=== PATIENT | female | born 1945 | race African-American/Black ===

== ENCOUNTER 2016-10-13 13:02 | Emergency (ER) | payer MEDICARE, MEDICAID ==
--- NOTE | 2016-10-13 14:00 | ER Document Report ---
ED Medical Screen (RME) - General Chief Complaint: Leg Swelling Stated Complaint: SWELLING IN LEGS Time Seen by Provider: 10/13/16 13:48 Mode of Arrival: Ambulatory Information source: Patient Notes: This is a 71-year-old female with multiple medical problems who presents with right lower extremity pain swelling and erythema. She states this has been progressing for 1-2 weeks. She states that over the past 2 days she has had increasing redness and pain. No fevers, chills, systemic symptoms. No chest pain or shortness of breath. She is concerned about a possible blood clot. She is on Xarelto. I have greeted and performed a rapid initial assessment of this patient. A comprehensive ED assessment and evaluation of the patient, analysis of test results and completion of the medical decision making process will be conducted by additional ED providers. TRAVEL OUTSIDE OF THE [place] IN LAST 30 DAYS: No - Related Data Allergies/Adverse Reactions: Shellfish * [Shellfish] Allergy (Verified 10/13/16 13:08) shrimp Allergy (Uncoded 10/13/16 13:08) Past Medical History - Past Medical History Cardiac Medical History: Reports: Hx Atrial Fibrillation, Hx DVT, Hx Hypercholesterolemia, Hx Hypertension Pulmonary Medical History: Denies: Hx Tuberculosis Endocrine Medical History: Reports: Hx Diabetes Mellitus Type 2 Renal/ Medical History: Denies: Hx Peritoneal Dialysis Musculoskeltal Medical History: Reports Hx Arthritis Psychiatric Medical History: Denies: Hx Depression Past Surgical History: Reports: Hx Cardiac Surgery - SHUNT, Hx Cholecystectomy, Hx Hysterectomy, Hx Vascular Surgery - IVC Filter - Immunizations Hx Diphtheria, Pertussis, Tetanus Vaccination: Yes Physical Exam - Vital signs Vitals: Temp Pulse Resp BP Pulse Ox 98.4 F 83 24 H 132/71 H 100 10/13/16 13:08 10/13/16 13:08 10/13/16 13:08 10/13/16 13:08 10/13/16 13:08 Course - Vital Signs Vital signs: Temp Pulse Resp BP Pulse Ox 98.4 F 83 24 H 132/71 H 100 10/13/16 13:08 10/13/16 13:08 10/13/16 13:08 10/13/16 13:08 10/13/16 13:08
--- NOTE | 2016-10-13 14:51 | ER Document Report ---
ED Extremity Problem, Lower - General Chief Complaint: Leg Swelling Stated Complaint: SWELLING IN LEGS Time Seen by Provider: 10/13/16 13:48 Mode of Arrival: Ambulatory Information source: Patient Notes: Patient is a 71-year-old female who presents to the ER today for 3 months of right lower extremity discoloration, pain, swelling, worsening over the past 3 weeks with some redness and increased pain. Patient has a history of DVT with an IVC filter placed. She denies any injury to the leg. She is on Xarelto currently. She denies any chest pain or shortness of breath. TRAVEL OUTSIDE OF THE [place] IN LAST 30 DAYS: No - Related Data Allergies/Adverse Reactions: Shellfish * [Shellfish] Allergy (Verified 10/13/16 13:08) shrimp Allergy (Uncoded 10/13/16 13:08) Past Medical History - General Information source: Patient - Social History Smoking Status: Former Smoker Family History: Reviewed & Not Pertinent Patient has suicidal ideation: No Patient has homicidal ideation: No - Past Medical History Cardiac Medical History: Reports: Hx Atrial Fibrillation, Hx DVT, Hx Hypercholesterolemia, Hx Hypertension Pulmonary Medical History: Denies: Hx Tuberculosis Endocrine Medical History: Reports: Hx Diabetes Mellitus Type 2 Renal/ Medical History: Denies: Hx Peritoneal Dialysis Musculoskeltal Medical History: Reports Hx Arthritis Psychiatric Medical History: Denies: Hx Depression Past Surgical History: Reports: Hx Cardiac Surgery - SHUNT, Hx Cholecystectomy, Hx Hysterectomy, Hx Vascular Surgery - IVC Filter - Immunizations Hx Diphtheria, Pertussis, Tetanus Vaccination: Yes Hx Pneumococcal Vaccination: 03/06/13 Review of Systems - Review of Systems Constitutional: No symptoms reported EENT: No symptoms reported Cardiovascular: No symptoms reported Respiratory: No symptoms reported Gastrointestinal: No symptoms reported Genitourinary: No symptoms reported Female Genitourinary: No symptoms reported Musculoskeletal: See HPI Skin: See HPI Hematologic/Lymphatic: See HPI Neurological/Psychological: No symptoms reported Physical Exam - Vital signs Vitals: Temp Pulse Resp BP Pulse Ox 98.4 F 83 24 H 132/71 H 100 10/13/16 13:08 10/13/16 13:08 10/13/16 13:08 10/13/16 13:08 10/13/16 13:08 - Notes Notes: PHYSICAL EXAMINATION: GENERAL: Obviously uncomfortable, but in no acute distress. HEAD: Atraumatic, normocephalic. EYES: Pupils equal round and reactive to light, extraocular movements intact, sclera anicteric, conjunctiva are normal. NECK: Normal range of motion, supple without lymphadenopathy LUNGS: CTAB and equal. No wheezes rales or rhonchi. HEART: Regular rate and rhythm without murmurs EXTREMITIES: Normal range of motion, no pitting edema. No cyanosis. NEUROLOGICAL: Cranial nerves grossly intact. Normal sensory/motor exams. PSYCH: Normal mood, normal affect. SKIN: Warm, Dry, normal turgor, darkened discoloration to the right lower extremity, slight erythema noted to the anterior right lower extremity, extremely tender to palpation in the right anterior lower extremity as well as calf, difficult to determine if Homans sign is positive or negative as patient screams in pain with the slightest graze of touch Course - Re-evaluation Re-evalutation: 10/13/16 16:57 Is unremarkable today, patient was given pain medication. Patient did admit during the visit that she just had a venous Doppler of the same extremity on 29 September. She has not received that report yet and that is why she came to the emergency department today. I do not have access to this report. 10/13/16 18:20 Venous Doppler negative for any DVT, good arterial pulses, dorsalis pedis, anterior and posterior tibialis all bounding. Will treat patient for cellulitis at this time with erythema, warmth, swelling and pain. - Vital Signs Vital signs: Temp Pulse Resp BP Pulse Ox 98.4 F 83 24 H 132/71 H 100 10/13/16 13:08 10/13/16 13:08 10/13/16 13:08 10/13/16 13:08 10/13/16 13:08 - Laboratory Result Diagrams: 10/13/16 16:10 10/13/16 16:10 Laboratory results interpreted by me: 10/13/16 10/13/16 16:10 16:10 Hgb 10.6 L Hct 33.8 L MCV 72 L MCH 22.7 L MCHC 31.3 L RDW 16.2 H Est GFR (Non-Af Amer) 50 L Total Protein 8.5 H Discharge - Discharge Clinical Impression: Cellulitis Qualifiers: Site of cellulitis: unspecified site Qualified Code(s): L03.90 - Cellulitis, unspecified Condition: Stable Disposition: HOME, SELF-CARE Instructions: Cellulitis ([facility]) Additional Instructions: Return immediately for any new or worsening symptoms. Follow up with primary care provider, call tomorrow to make followup appointment. Prescriptions: Cephalexin Monohydrate [Keflex 500 mg Capsule] 500 mg PO Q6H 10 Days Hydrocodone/Acetaminophen [[place] 5-325 mg Tablet] 1 tab PO Q4 PRN #15 tablet PRN Reason: Referrals: NELSON KATE MD [Primary Care Provider] - Follow up as needed
[2016-10-13] MEDS ORDERED: HYDROMORPHONE HCL INJ/PF 2 MG/ML AMPULE IM ONE (15:50)
[2016-10-13 16:34] LABS: ABSOLUTE EOSINOPHILS # (AUTO) 0.1 10^3/uL (0.0-0.6); ABSOLUTE LYMPHOCYTES (AUTO) 1.7 10^3/uL (0.5-4.7); ABSOLUTE MONOCYTES (AUTO) 0.5 10^3/uL (0.1-1.4); ABSOLUTE NEUT (AUTO) 2.6 10^3/uL (1.7-8.2); EOSINOPHILS % (AUTO) 1.3 % (0-6); HEMATOCRIT 33.8 % (36.0-47.0); HEMOGLOBIN 10.6 g/dL (12.0-15.5); LYMPHOCYTES % (AUTO) 34.3 % (13-45); MEAN CORPUSCULAR HEMOGLOBIN 22.7 pg (27.0-33.4); MEAN CORPUSCULAR HGB CONC 31.3 g/dL (32.0-36.0); MEAN CORPUSCULAR VOLUME 72 fl (80-97); RED BLOOD COUNT 4.67 10^6/uL (3.72-5.28); RED CELL DISTRIBUTION WIDTH 16.2 % (11.5-14.0); SEGMENTED NEUTROPHILS % (AUTO) 53.4 % (42-78); WHITE BLOOD COUNT 4.9 10^3/uL (4.0-10.5)
[2016-10-13 16:48] LABS: ALANINE AMINOTRANSFERASE 23 U/L (9-52); ALBUMIN 3.6 g/dL (3.5-5.0); ALKALINE PHOSPHATASE 96 U/L (38-126); ANION GAP 11 (5-19); ASPARTATE AMINO TRANSFERASE 25 U/L (14-36); BILIRUBIN,DIRECT 0.4 mg/dL (0.0-0.4); BILIRUBIN,TOTAL 0.8 mg/dL (0.2-1.3); BLOOD UREA NITROGEN 16 mg/dL (7-20); CALCIUM 8.8 mg/dL (8.4-10.2); CARBON DIOXIDE 27 mmol/L (22-30); CHLORIDE 103 mmol/L (98-107); CREATININE RESULT 1.08 mg/dL (0.52-1.25); GLUCOSE 95 mg/dL (75-110); POTASSIUM 3.9 mmol/L (3.6-5.0); SODIUM 141.2 mmol/L (137-145); TOTAL PROTEIN 8.5 g/dL (6.3-8.2)
--- NOTE | 2016-10-13 18:16 | RADIOLOGY REPORT (SQ) ---
EXAM DESCRIPTION: VENOUS UNILATERAL LOWER COMPLETED DATE/TIME: 10/13/2016 5:54 pm REASON FOR STUDY: RLE edema/pain COMPARISON: None. TECHNIQUE: Dynamic and static alvarado scale and color images acquired of the right leg venous system. S elected spectral images acquired with additional compression and augmentation maneuvers. The contrala teral common femoral vein and saphenofemoral junction were also imaged. Images stored on PACS. LIMITATIONS: None. FINDINGS: COMMON FEMORAL: Normal phasicity, compression and augmentation. No visualized echogenic ma terial on alvarado scale. No defects on color images. FEMORAL: Normal compression and augmentation. No visualized echogenic material on alvarado scale. No defe cts on color images. POPLITEAL: Normal compression, augmentation. No visualized echogenic material on alvarado scale. No defec ts on color images. CALF VESSELS: Normal compression, augmentation. No visualized echogenic material on alvarado scale. No de fects on color images. GSV and SSV: Normal compression, augmentation. No visualized echogenic material on alvarado scale. No def ects on color images. ANY DEEP VENOUS INSUFFICIENCY: Not evaluated. ANY EVIDENCE OF POPLITEAL CYST: No. OTHER: No other significant finding. CONTRALATERAL COMMON FEMORAL VEIN AND SAPHENOFEMORAL JUNCTION: Normal phasicity, compression and augmentation. No visualized echogenic material on alvarado scale. No de fects on color images. IMPRESSION: NO EVIDENCE DVT OR SVT IN THE RIGHT LEG. TECHNICAL DOCUMENTATION: JOB ID: [id number] [employer]- All Rights Reserved
[2016-10-13] MEDS ORDERED: HYDROCODONE/ACETAMINOPHEN 5-325 MG 6 TAB/DSPK PO PRN (18:19)
[2016-10-13 18:51] VITALS: BP 121/52
== END 2016-10-13 18:50 | disposition home or self-care (01) ==
LOC: ER 13:02
DX: L03.90 Cellulitis, unspecified (principal); M79.604 Pain in right leg; M79.89 Other specified soft tissue disorders; E11.9 Type 2 diabetes mellitus without complications; I82.409 Acute embolism and thrombosis of unspecified deep veins of unspecified lower extremity; Z95.828 Presence of other vascular implants and grafts; Z79.01 Long term (current) use of anticoagulants; Z91.013 Allergy to seafood; Z87.891 Personal history of nicotine dependence
CPT/HCPCS: 99284; 36415; 85025; 80053; 93971; A9270

== ENCOUNTER → 2017-01-31 | Outpatient (CLI) | payer MEDICARE, MEDICAID ==
--- NOTE | 2017-01-31 13:11 | RADIOLOGY REPORT (SQ) ---
EXAM DESCRIPTION: CAROTID DOPPLER COMPLETED DATE/TIME: 01/31/2017 1:02 pm REASON FOR STUDY: DIZZINESS, HEADACHE R42 DIZZINESS AND GIDDINESS R26.89 OTHER ABNORMALITIES OF GA IT AND MOBILITY R51 HEADACHE COMPARISON: None. TECHNIQUE: Grayscale ultrasound, Doppler velocity and spectra, and color Doppler images acquired of the extra-cranial carotid and vertebral arteries. Images stored on PACS. LIMITATIONS: None. FINDINGS: RIGHT CAROTID CCA Velocities: Within normal limits. ICA Velocities Peak systolic 0.84 m/s. End diastolic 0.16 m/s. Proximal ICA/CCA peak systolic ratio 1.1. Spectra normal. No significant plaque. LEFT CAROTID CCA Velocities: Within normal limits. ICA Velocities Peak systolic 0.85 m/s. End diastolic 0.3 m/s. Proximal ICA/CCA peak systolic ratio 1.9. Spectra normal. No significant plaque. VERTEBRAL ARTERIES: Antegrade flow. Normal waveforms. SUBCLAVIAN ARTERIES: No finding. OTHER: No other significant finding. IMPRESSION: NO HEMODYNAMICALLY SIGNIFICANT STENOSIS. COMMENT: Quality ID #[id number]: Velocity criteria are extrapolated from the diameter data as defined by t he Society of Radiologists in Ultrasound Consensus Conference. Radiology 2003: 229; 340-346. TECHNICAL DOCUMENTATION: JOB ID: [id number] [employer]- All Rights Reserved
--- NOTE | 2017-01-31 14:09 | RADIOLOGY REPORT (SQ) ---
EXAM DESCRIPTION: MRI HEAD COMBO COMPLETED DATE/TIME: 01/31/2017 1:43 pm REASON FOR STUDY: HEADACHE R42 DIZZINESS AND GIDDINESS R26.89 OTHER ABNORMALITIES OF GAIT AND MOBI LITY R51 HEADACHE COMPARISON: CT dated 06/30/2010. TECHNIQUE: Multiplanar imaging includes noncontrasted T1, T2, FLAIR, and Diffusion with ADC map seq uences. Contrast enhanced T1 images. Images stored on PACS. CONTRAST TYPE AND DOSE: 20 mL Multihance. RENAL FUNCTION: GFR 53. LIMITATIONS: None. FINDINGS: ANATOMY: No anomalies. Normal vascular flow voids. Pituitary fossa normal. CSF SPACES: Normal size and contour. No hemorrhage. CEREBRUM: A few high-signal intensity lesions scattered throughout the white matter on FLAIR imaging with distribution suggesting chronic microvascular ischemic change. Sulci and gyri normal in size and contour. No evidence of hemorrhage, mass or extraaxial fluid collection. No enhancing lesions. POSTERIOR FOSSA: No signal alteration. No hemorrhage. No edema, masses or mass effect. Internal audit ory canals, cerebello-pontine angles, mastoids normal. DIFFUSION: Negative for acute or subacute infarction. ORBITS: No masses. Globes normal. PARANASAL SINUSES: No fluid levels. Mucosa normal. OTHER: No other significant finding. IMPRESSION: NO ENHANCING LESIONS. MINIMAL MICROVASCULAR ISCHEMIC CHANGE. OTHERWISE NORMAL STUDY. EVIDENCE OF ACUTE STROKE: NO. TECHNICAL DOCUMENTATION: JOB ID: [id number] [employer]- All Rights Reserved
== END ==
LOC: SP 10:57
PROVIDERS: ATTEND Physician Assistant
DX: R42 Dizziness and giddiness (principal); R26.89 Other abnormalities of gait and mobility; R51 Headache
CPT/HCPCS: 82565; 93880; 70553; A9577

== ENCOUNTER 2018-04-11 21:40 | Emergency (ER) | payer MEDICARE, MEDICAID ==
[2018-04-11 22:20] LABS: INTERNATIONAL RATION (INR) 2.33; PROTHROMBIN TIME 26.7 SEC (11.4-15.4)
[2018-04-11 22:21] LABS: PARTIAL THROMBOPLASTIN TIME 42.5 SEC (23.5-35.8)
[2018-04-11 22:30] LABS: ABSOLUTE BASOPHILS # (AUTO) 0.1 10^3/uL (0.0-0.2); ABSOLUTE EOSINOPHILS # (AUTO) 0.1 10^3/uL (0.0-0.6); ABSOLUTE LYMPHOCYTES (AUTO) 1.9 10^3/uL (0.5-4.7); ABSOLUTE MONOCYTES (AUTO) 0.3 10^3/uL (0.1-1.4); ABSOLUTE NEUT (AUTO) 1.2 10^3/uL (1.7-8.2); BASOPHILS % (AUTO) 1.8 % (0-2); EOSINOPHILS % (AUTO) 1.6 % (0-6); HEMATOCRIT 37.4 % (36.0-47.0); HEMOGLOBIN 12.1 g/dL (12.0-15.5); LYMPHOCYTES % (AUTO) 54.9 % (13-45); MEAN CORPUSCULAR HEMOGLOBIN 24.5 pg (27.0-33.4); MEAN CORPUSCULAR HGB CONC 32.4 g/dL (32.0-36.0); MEAN CORPUSCULAR VOLUME 76 fl (80-97); MONOCYTES % (AUTO) 7.8 % (3-13); RED BLOOD COUNT 4.96 10^6/uL (3.72-5.28); RED CELL DISTRIBUTION WIDTH 14.7 % (11.5-14.0); SEGMENTED NEUTROPHILS % (AUTO) 33.9 % (42-78); TOTAL CELLS COUNTED % (AUTO) 100 %; WHITE BLOOD COUNT 3.5 10^3/uL (4.0-10.5)
[2018-04-11 22:31] LABS: ALANINE AMINOTRANSFERASE 25 U/L (9-52); ALBUMIN 4.7 g/dL (3.5-5.0); ALKALINE PHOSPHATASE 53 U/L (38-126); ANION GAP 12 (5-19); ASPARTATE AMINO TRANSFERASE 37 U/L (14-36); BILIRUBIN,DIRECT 0.4 mg/dL (0.0-0.4); BLOOD UREA NITROGEN 14 mg/dL (7-20); CALCIUM 9.4 mg/dL (8.4-10.2); CARBON DIOXIDE 25 mmol/L (22-30); CHLORIDE 107 mmol/L (98-107); GLUCOSE 135 mg/dL (75-110); POTASSIUM 4.1 mmol/L (3.6-5.0); SODIUM 143.6 mmol/L (137-145); TOTAL PROTEIN 9.4 g/dL (6.3-8.2)
[2018-04-11 22:48] LABS: PLATELET COUNT 154 10^3/uL (150-450)
--- NOTE | 2018-04-11 23:50 | ER Document Report ---
ED General - General Chief Complaint: Rectal Bleeding Stated Complaint: BLOODY STOOL Time Seen by Provider: 04/11/18 21:54 Notes: Patient is a 73-year-old female with a past medical history of morbid obesity, hypertension, diabetes, hyperlipidemia, anticoagulated on rivaroxaban for a history of prior DVTs who presents with an episode of rectal bleeding that occurred just prior to arrival. The patient states that she went to have a bowel movement, when she wiped she noted blood on the tissue paper and noticed several small clots in the toilet bowl. This prompted her to come to the emergency department. The patient does also complain of long-standing intermittent right flank pain that is not new or different today. Has been ongoing for at least 2 years and has been evaluated extensively by her primary care physician. She states that that pain did occur tonight when she bent over to try to zip up her boots. That pain has currently resolved. Is described as a stabbing, severe pain when it occurs generally triggered by movement. She denies any prior history of rectal bleeding. She denies any ongoing bleeding from her rectum. She denies any lightheadedness or syncope. TRAVEL OUTSIDE OF THE [place] IN LAST 30 DAYS: No - Related Data Allergies/Adverse Reactions: Shellfish * [Shellfish] Allergy (Verified 10/13/16 13:08) shrimp Allergy (Uncoded 10/13/16 13:08) Past Medical History - General Information source: Patient, Relative - Social History Smoking Status: Never Smoker Frequency of alcohol use: None Drug Abuse: None Lives with: Family Family History: Reviewed & Not Pertinent Patient has suicidal ideation: No Patient has homicidal ideation: No - Past Medical History Cardiac Medical History: Reports: Hx Atrial Fibrillation, Hx DVT, Hx Hypercholesterolemia, Hx Hypertension Pulmonary Medical History: Denies: Hx Tuberculosis Endocrine Medical History: Reports: Hx Diabetes Mellitus Type 2 Renal/ Medical History: Denies: Hx Peritoneal Dialysis Musculoskeletal Medical History: Reports Hx Arthritis Psychiatric Medical History: Denies: Hx Depression Past Surgical History: Reports: Hx Cardiac Surgery - SHUNT, Hx Cholecystectomy, Hx Hysterectomy, Hx Vascular Surgery - IVC Filter - Immunizations Hx Diphtheria, Pertussis, Tetanus Vaccination: Yes Hx Pneumococcal Vaccination: 03/06/13 Review of Systems - Review of Systems Notes: Constitutional: Negative for fever. HENT: Negative for sore throat. Eyes: Negative for visual changes. Cardiovascular: Negative for chest pain. Respiratory: Negative for shortness of breath. Gastrointestinal: Negative for abdominal pain, positive for rectal bleeding Genitourinary: Negative for dysuria. Musculoskeletal: Negative for back pain. Skin: Negative for rash. Neurological: Negative for headaches, weakness or numbness. 10 point ROS negative except as marked above and in HPI. Physical Exam - Vital signs Vitals: Temp Pulse BP Pulse Ox 98.9 F 53 L 153/72 H 99 04/11/18 21:48 04/11/18 21:48 04/11/18 21:48 04/11/18 21:48 Interpretation: Hypertensive, Bradycardic Notes: PHYSICAL EXAMINATION: GENERAL: Well-appearing, well-nourished and in no acute distress. HEAD: Atraumatic, normocephalic. EYES: Pupils equal round and reactive to light, extraocular movements intact, sclera anicteric, conjunctiva are normal. ENT: nares patent, oropharynx clear without exudates. Moist mucous membranes. NECK: Normal range of motion, supple without lymphadenopathy LUNGS: Breath sounds clear to auscultation bilaterally and equal. No wheezes rales or rhonchi. HEART: Regular rate and rhythm without murmurs ABDOMEN: Soft, nontender, normoactive bowel sounds. No guarding, no rebound. No masses appreciated. Rectal: Several nonthrombosed external hemorrhoids. Brown stool. No bleeding. EXTREMITIES: Normal range of motion, no pitting or edema. No cyanosis. NEUROLOGICAL: No focal neurological deficits. Moves all extremities spontaneously and on command. PSYCH: Normal mood, normal affect. SKIN: Warm, Dry, normal turgor, no rashes or lesions noted. Course - Re-evaluation Re-evalutation: 04/11/18 23:50 Presentation is most consistent with uncomplicated external hemorrhoids. No evidence of anemia on CBC. Although patient is intact regulated, on rectal examination there is no active bleeding, only brown stool. Patient's abdominal exam is otherwise benign. I do not suspect a more significant lower GI bleed or upper GI bleed based on history, vitals, normal hemoglobin, and patient's overall well appearance. In regards to the patient's chronic right flank pain: I have encouraged her to continue to follow with her primary care doctor regarding this issue. It does sound very musculoskeletal in nature. I have advised significant weight loss as the patient currently has a BMI of 48, weight of 149 kg which could likewise be contributing to that pain. At this time will discharge with return precautions and follow-up recommendations. Verbal discharge instructions given a the bedside and opportunity for questions given. Medication warnings reviewed. Patient is in agreement with this plan and has verbalized understanding of return precautions and the need for primary care follow-up in the next 24-72 hours. - Vital Signs Vital signs: Temp Pulse Resp BP Pulse Ox 98.2 F 61 16 142/69 H 97 04/12/18 00:06 04/12/18 00:06 04/12/18 00:06 04/12/18 00:06 04/12/18 00:06 - Laboratory Result Diagrams: 04/11/18 22:05 04/11/18 22:05 Laboratory results interpreted by me: 04/11/18 04/11/18 04/11/18 22:05 22:05 22:05 WBC 3.5 L MCV 76 L MCH 24.5 L RDW 14.7 H Seg Neutrophils % 33.9 L Lymphocytes % 54.9 H Absolute Neutrophils 1.2 L PT 26.7 H APTT 42.5 H Est GFR ( Amer) 54 L Est GFR (Non-Af Amer) 45 L Glucose 135 H AST 37 H Total Protein 9.4 H Discharge - Discharge Clinical Impression: Rectal bleeding, External hemorrhoids with complication, Chronic right flank pain, Morbid obesity Condition: Good Disposition: HOME, SELF-CARE Additional Instructions: You were seen today for hemorrhoids. The best treatment is to avoid straining while having bowel moments, avoiding heavy lifting, or any other activity that causes you to bear down forcefully. You need to make sure that your stools are soft and should start taking Docusate 200mg in the morning and at night until your stools are very soft and you can have a bowel movement without any straining. You can also soak in warm water, apply topical hemorrhoid cream that can be purchased at the store, and take tylenol or ibuprofen per box instructions as needed for pain. Please follow-up with your primary doctor. Return if you begin to have persistent bleeding, worsening pain, abdominal pain , fever >101, or any other symptoms that are concerning to you. Referrals: NELSON KATE MD [Primary Care Provider] - Follow up as needed
[2018-04-12 00:06] VITALS: BP 142/69
== END 2018-04-12 00:06 | disposition home or self-care (01) ==
LOC: ER 21:40
DX: K62.5 Hemorrhage of anus and rectum (principal); K64.4 Residual hemorrhoidal skin tags; E66.01 Morbid (severe) obesity due to excess calories; R10.9 Unspecified abdominal pain; I10 Essential (primary) hypertension; E11.9 Type 2 diabetes mellitus without complications; I48.91 Unspecified atrial fibrillation; Z79.01 Long term (current) use of anticoagulants; Z86.718 Personal history of other venous thrombosis and embolism
CPT/HCPCS: 36415; 80053; 85025; 85610; 85730; 99283

== ENCOUNTER 2018-10-04 10:34 | Emergency (ER) | payer MEDICARE, MEDICAID ==
--- NOTE | 2018-10-04 11:02 | ER Document Report ---
ED Medical Screen (RME) - General Chief Complaint: Numbness of Arm Stated Complaint: RIGHT ARM PAIN Time Seen by Provider: 10/04/18 10:49 Primary Care Provider: NELSON KATE MD [Primary Care Provider] - Follow up as needed Mode of Arrival: Wheelchair Information source: Patient Notes: Patient presents complaining of left-sided neck, left upper chest and left arm pain that started around 2:00 this morning. Patient states she does feel dizzy. Patient denies any back pain headache or shortness of breath. Patient does take anticoagulants for A. fib and a previous DVT. hx: A. fib, DVT, hypertension, depression I have greeted and performed a rapid initial assessment of this patient. A comprehensive ED assessment and evaluation of the patient, analysis of test results and completion of the medical decision making process will be conducted by additional ED providers. TRAVEL OUTSIDE OF THE [place] IN LAST 30 DAYS: No - Related Data Allergies/Adverse Reactions: Shellfish * [Shellfish] Allergy (Verified 10/13/16 13:08) shrimp Allergy (Uncoded 10/13/16 13:08) Past Medical History - Social History Frequency of alcohol use: None Drug Abuse: None - Past Medical History Cardiac Medical History: Reports: Hx Atrial Fibrillation, Hx DVT, Hx Hypercholesterolemia, Hx Hypertension Pulmonary Medical History: Denies: Hx Tuberculosis Endocrine Medical History: Reports: Hx Diabetes Mellitus Type 2 Renal/ Medical History: Denies: Hx Peritoneal Dialysis Musculoskeltal Medical History: Reports Hx Arthritis Psychiatric Medical History: Denies: Hx Depression Past Surgical History: Reports: Hx Cardiac Surgery - SHUNT, Hx Cholecystectomy, Hx Hysterectomy, Hx Vascular Surgery - IVC Filter - Immunizations Hx Diphtheria, Pertussis, Tetanus Vaccination: Yes Physical Exam - Vital signs Vitals: Temp Pulse Resp BP Pulse Ox 98.0 F 54 L 16 146/72 H 100 10/04/18 10:42 10/04/18 10:42 10/04/18 10:42 10/04/18 10:42 10/04/18 10:42 - Cardiovascular Rhythm: Regular Heart sounds: S1 appreciated, S2 appreciated - Neurological [place] Coma Scale Eye Opening: Spontaneous [place] Coma Scale Verbal: Oriented [place] Coma Scale Motor: Obeys Commands [place] Coma Scale Total: 15 Speech: Normal Motor strength normal: LUE, RUE Additional motor exam normals: Equal senior capital markets specialist. No: Weakness Course - Vital Signs Vital signs: Temp Pulse Resp BP Pulse Ox 98.0 F 54 L 16 146/72 H 100 10/04/18 10:42 10/04/18 10:42 10/04/18 10:42 10/04/18 10:42 10/04/18 10:42 Doctor's Discharge - Discharge Referrals: NELSON KATE MD [Primary Care Provider] - Follow up as needed
--- NOTE | 2018-10-04 12:09 | RADIOLOGY REPORT (SQ) ---
EXAM DESCRIPTION: CHEST 2 VIEWS COMPLETED DATE/TIME: 10/04/2018 11:55 am REASON FOR STUDY: cp, L arm pain COMPARISON: 02/15/2014 and earlier EXAM PARAMETERS: NUMBER OF VIEWS: two views TECHNIQUE: Digital Frontal and Lateral radiographic views of the chest acquired. RADIATION DOSE: NA LIMITATIONS: none FINDINGS: LUNGS AND PLEURA: Prominent interstitial markings bilaterally. No focal consolidation, pl eural effusion, pneumothorax per MEDIASTINUM AND HILAR STRUCTURES: No masses or contour abnormalities. HEART AND VASCULAR STRUCTURES: Cardiac silhouette is borderline enlarged but unchanged in size. Cent ral pulmonary vasculature is prominent. BONES: No acute findings. HARDWARE: None in the chest. OTHER: No other significant finding. IMPRESSION: Mild pulmonary vascular congestion with unchanged borderline cardiomegaly. TECHNICAL DOCUMENTATION: JOB ID: [id number] [employer]- All Rights Reserved Reading location - IP/workstation name: [email or web address]
[2018-10-04 12:49] LABS: ABSOLUTE LYMPHOCYTES (AUTO) 1.2 10^3/uL (0.5-4.7); ABSOLUTE MONOCYTES (AUTO) 0.3 10^3/uL (0.1-1.4); ABSOLUTE NEUT (AUTO) 1.7 10^3/uL (1.7-8.2); BASOPHILS % (AUTO) 0.3 % (0-2); EOSINOPHILS % (AUTO) 1.3 % (0-6); HEMATOCRIT 32.8 % (36.0-47.0); HEMOGLOBIN 10.6 g/dL (12.0-15.5); LYMPHOCYTES % (AUTO) 35.9 % (13-45); MEAN CORPUSCULAR HEMOGLOBIN 23.8 pg (27.0-33.4); MEAN CORPUSCULAR HGB CONC 32.2 g/dL (32.0-36.0); MEAN CORPUSCULAR VOLUME 74 fl (80-97); MONOCYTES % (AUTO) 9.5 % (3-13); PLATELET COUNT 157 10^3/uL (150-450); RED BLOOD COUNT 4.43 10^6/uL (3.72-5.28); TOTAL CELLS COUNTED % (AUTO) 100 %; WHITE BLOOD COUNT 3.3 10^3/uL (4.0-10.5)
[2018-10-04 13:01] LABS: INTERNATIONAL RATION (INR) 2.79; PARTIAL THROMBOPLASTIN TIME 45.3 SEC (23.5-35.8); PROTHROMBIN TIME 30.8 SEC (11.4-15.4)
[2018-10-04 13:07] LABS: ALANINE AMINOTRANSFERASE 17 U/L (9-52); ALBUMIN 4.3 g/dL (3.5-5.0); ALKALINE PHOSPHATASE 85 U/L (38-126); ANION GAP 13 (5-19); ASPARTATE AMINO TRANSFERASE 26 U/L (14-36); BILIRUBIN,DIRECT 0.4 mg/dL (0.0-0.4); BILIRUBIN,TOTAL 1.1 mg/dL (0.2-1.3); BLOOD UREA NITROGEN 17 mg/dL (7-20); CARBON DIOXIDE 23 mmol/L (22-30); CHLORIDE 104 mmol/L (98-107); CREATINE KINASE 136 U/L (30-135); GLUCOSE 103 mg/dL (75-110); SODIUM 139.6 mmol/L (137-145); TOTAL PROTEIN 8.9 g/dL (6.3-8.2)
[2018-10-04 13:19] LABS: CREATINE KINASE MB 0.92 ng/mL (<4.55); TROPONIN I < 0.012 ng/mL
--- NOTE | 2018-10-04 13:35 | ER Document Report ---
ED Neuro Symptoms/Deficit - General Chief Complaint: Numbness of Arm Stated Complaint: ARM NUMBNESS Time Seen by Provider: 10/04/18 10:49 Primary Care Provider: NELSON KATE MD [Primary Care Provider] - Follow up as needed Mode of Arrival: Wheelchair Information source: Patient, [facility] Records Notes: This 73-year-old female patient comes emergency room complaining of a left-sided neck and upper chest pain going into the left shoulder and arm about 2 AM. She reports a burning sensation in the arm and shoulder that later became a numbness going down to the fingers. It is predominantly the third and fourth fingers that feel numb. She did not notice anything that made it better or worse. At this time most of the pain is in the left axillary chest wall region. There was no shortness of breath, diaphoresis, nausea or vomiting associated with this. She is on Xarelto 20 mg daily for DVT prophylaxis. TRAVEL OUTSIDE OF THE [place] IN LAST 30 DAYS: No - Related Data Allergies/Adverse Reactions: Shellfish * [Shellfish] Allergy (Verified 10/13/16 13:08) shrimp Allergy (Uncoded 10/13/16 13:08) Past Medical History - General Information source: Patient, [facility] Records - Social History Smoking Status: Never Smoker Cigarette use (# per day): No Chew tobacco use (# tins/day): No Smoking Education Provided: No Frequency of alcohol use: None Drug Abuse: None Occupation: Retired Lives with: Alone Family History: Reviewed & Not Pertinent Patient has suicidal ideation: No Patient has homicidal ideation: No - Past Medical History Cardiac Medical History: Reports: Hx Atrial Fibrillation, Hx DVT - Right leg DVT, Hx Hypercholesterolemia, Hx Hypertension Endocrine Medical History: Reports: Hx Diabetes Mellitus Type 2 GI Medical History: Reports: None Musculoskeletal Medical History: Reports Hx Arthritis Psychiatric Medical History: Reports: None Infectious Medical History: Reports: None Past Surgical History: Reports: Hx Cardiac Catheterization - No coronary artery disease by history, Hx Cholecystectomy, Hx Hysterectomy, Hx Vascular Surgery - IVC Filter - Immunizations Hx Diphtheria, Pertussis, Tetanus Vaccination: Yes Hx Pneumococcal Vaccination: 03/06/13 Review of Systems - Review of Systems Constitutional: No symptoms reported EENT: No symptoms reported Cardiovascular: Edema Respiratory: No symptoms reported Gastrointestinal: No symptoms reported Genitourinary: No symptoms reported Female Genitourinary: Post menopausal Musculoskeletal: Joint pain, Leg swelling Skin: No symptoms reported Hematologic/Lymphatic: No symptoms reported Neurological/Psychological: No symptoms reported Physical Exam - Vital signs Vitals: Temp Pulse Resp BP Pulse Ox 98.0 F 54 L 16 146/72 H 100 10/04/18 10:42 10/04/18 10:42 10/04/18 10:42 10/04/18 10:42 10/04/18 10:42 Interpretation: Normal - General General appearance: Appears well, Alert In distress: None - HEENT Head: Normocephalic, Atraumatic Eyes: Normal Pupils: PERRL Neck: Normal, Supple, Other - There is tenderness to palpate the posterior cervical muscles, left side more so than the right. There is some tenderness to palpate the trapezius muscles on the left side.. No: Carotid bruit - Respiratory Respiratory status: No respiratory distress Chest palpation: Tender - There is tenderness to palpate the anterior chest wall with the left side being more tender than right. There is increased tenderness to palpate the left lateral chest wall in the axillary region. - Cardiovascular Rhythm: Irregularly irregular Heart sounds: Normal auscultation Murmur: No - Abdominal Inspection: Morbidly Obese Bowel sounds: Normal Tenderness: Nontender - Back Back: Normal - Extremities General upper extremity: Normal inspection, Tender - There is some tenderness to palpate about the left shoulder region., Other - Negative Phalen and Tinel testing on the left upper extremity. General lower extremity: Edema - There is pitting edema to the lower extremities, right side is worse than the left.. No: Normal color - There is chronic thickening and darkening of the skin of the right lower extremity. - Neurological Neuro grossly intact: Yes - Psychological Associated symptoms: Normal affect, Normal mood Course - Vital Signs Vital signs: Temp Pulse Resp BP Pulse Ox 98.0 F 54 L 13 146/82 H 100 10/04/18 10:42 10/04/18 10:42 10/04/18 13:05 10/04/18 13:05 10/04/18 13:05 - Laboratory Result Diagrams: 10/04/18 12:25 10/04/18 12:25 Laboratory results interpreted by me: 10/04/18 10/04/18 10/04/18 12:25 12:25 12:25 WBC 3.3 L Hgb 10.6 L Hct 32.8 L MCV 74 L MCH 23.8 L RDW 15.0 H PT 30.8 H APTT 45.3 H Est GFR ( Amer) 57 L Est GFR (Non-Af Amer) 47 L Creatine Kinase 136 H NT-Pro-B Natriuret Pep Total Protein 8.9 H 10/04/18 12:55 WBC Hgb Hct MCV MCH RDW PT APTT Est GFR ( Amer) Est GFR (Non-Af Amer) Creatine Kinase NT-Pro-B Natriuret Pep 1080 H Total Protein - Diagnostic Test Radiology reviewed: Image reviewed, Reports reviewed - Chest x-ray is read as m ild pulmonary vascular congestion with unchanged cardiomegaly. However this is a portable chest x-ray on a morbidly obese patient, so this pulmonary vascular congestion may be an over read.. - EKG Interpretation by Me EKG shows normal: [place], Intervals, QRS Complexes. abnormal: ST-T Waves - Borderline inferior T abnormalities Rate: Normal - 55 Rhythm: A.Fib [place]/QRS: Left axis deviation When compared to previous EKG there are: No significant change Discharge - Discharge Clinical Impression: Chest wall pain, Atrial fibrillation Condition: Stable Disposition: HOME, SELF-CARE Additional Instructions: Chest Wall Pain Your chest pain has been diagnosed as coming from the chest wall. This is often caused by straining the muscles or joints in the chest during physical activity, direct trauma, coughing, or vigorous vomiting. Persons with arthritis are especially prone to this type of pain, due to inflammation of the cartilage joints near the breast bone. Occasionally, no cause can be found. Rest from strenuous physical activity. This kind of chest pain is usually made worse by movement of the chest. Depending on the symptoms, we may recommend medicine such as ibuprofen or Aleve for pain and anti-inflammatory effects. If the pain is new, and seems to be due to muscle strain, cold packs can help . Otherwise, apply gentle warmth to the painful area for 15 minutes every hour or two. You should contact the doctor immediately if things change. Further evaluation is needed if you develop a fever or cough, if the nature of the pain changes, or if you become short of breath. Follow-up with Dr. Kate this week if not improving. RETURN TO THE EMERGENCY ROOM IF ANY NEW OR WORSENING SYMPTOMS. Referrals: NELSON KATE MD [Primary Care Provider] - Follow up as needed
[2018-10-04 14:45] VITALS: BP 122/82
--- NOTE | 2018-10-04 23:46 | EKG REPORT ---
SEVERITY:- ABNORMAL ECG - ATRIAL FIBRILLATION BORDERLINE LEFT AXIS DEVIATION BORDERLINE T ABNORMALITIES, INFERIOR LEADS : Confirmed by: Dagmar Quintana MD 04-Oct-2018 23:46:05
== END 2018-10-04 14:58 | disposition home or self-care (01) ==
LOC: ER 10:34
DX: R07.89 Other chest pain (principal); I48.91 Unspecified atrial fibrillation; R20.0 Anesthesia of skin; M54.2 Cervicalgia; Z91.013 Allergy to seafood
CPT/HCPCS: 36415; 71046; 80053; 82550; 82553; 83735; 83880; 84484; 85025; 85610; 85730; 93005; 93010; 99284

== ENCOUNTER 2018-11-12 18:09 | Emergency (ER) | payer MEDICARE, MEDICAID ==
[2018-11-12] MEDS ORDERED: ONDANSETRON 4 MG TAB.RAPDIS PO ONE (18:35)
--- NOTE | 2018-11-12 18:40 | ER Document Report ---
ED Medical Screen (RME) - General Chief Complaint: Swelling of Lower Extremity Stated Complaint: RIGHT ANKLE SWELLING Time Seen by Provider: 11/12/18 18:33 Primary Care Provider: NELSON KATE MD [Primary Care Provider] - Follow up as needed Mode of Arrival: Ambulatory Information source: Patient Notes: Patient is a 73-year-old female with history of multiple DVTs. Patient reports increased pain and swelling over the last several days. Patient is on blood thinners for recurrent DVTs, she also has a IVC filter although she denies history of pulmonary embolism. Exam: Significant swelling noted to right lower extremity, warmth and erythema noted. I have greeted and performed a rapid initial assessment of this patient. A comprehensive ED assessment and evaluation of the patient, analysis of test results and completion of the medical decision making process will be conducted by additional ED providers. I have specifically instructed the patient or family members with the patient to immediately return to any nursing staff should anything change in the patient's condition or with their chief complaint. This medical record was dictated with voice recognizing software. There may be grammatical, syntax errors that are unintended. TRAVEL OUTSIDE OF THE [place] IN LAST 30 DAYS: No - Related Data Allergies/Adverse Reactions: Shellfish * [Shellfish] Allergy (Verified 11/12/18 18:23) shrimp Allergy (Uncoded 11/12/18 18:23) Past Medical History - Past Medical History Cardiac Medical History: Reports: Hx Atrial Fibrillation, Hx DVT - Right leg DVT, Hx Hypercholesterolemia, Hx Hypertension Pulmonary Medical History: Denies: Hx Tuberculosis Endocrine Medical History: Reports: Hx Diabetes Mellitus Type 2 Renal/ Medical History: Denies: Hx Peritoneal Dialysis Musculoskeltal Medical History: Reports Hx Arthritis Psychiatric Medical History: Denies: Hx Depression Past Surgical History: Reports: Hx Cardiac Catheterization - No coronary artery disease by history, Hx Cardiac Surgery - SHUNT, Hx Cholecystectomy, Hx Hysterectomy, Hx Vascular Surgery - IVC Filter - Immunizations Hx Diphtheria, Pertussis, Tetanus Vaccination: Yes Physical Exam - Vital signs Vitals: Temp Pulse Resp BP Pulse Ox 99.3 F 73 18 150/67 H 98 11/12/18 18:25 11/12/18 18:25 11/12/18 18:25 11/12/18 18:25 11/12/18 18:25 Course - Vital Signs Vital signs: Temp Pulse Resp BP Pulse Ox 99.3 F 73 18 150/67 H 98 11/12/18 18:25 11/12/18 18:25 11/12/18 18:25 11/12/18 18:25 11/12/18 18:25 Doctor's Discharge - Discharge Referrals: NELSON KATE MD [Primary Care Provider] - Follow up as needed
[2018-11-12 19:10] LABS: ABSOLUTE BASOPHILS # (AUTO) 0.1 10^3/uL (0.0-0.2); ABSOLUTE LYMPHOCYTES (AUTO) 1.3 10^3/uL (0.5-4.7); ABSOLUTE MONOCYTES (AUTO) 0.3 10^3/uL (0.1-1.4); ABSOLUTE NEUT (AUTO) 2.8 10^3/uL (1.7-8.2); BASOPHILS % (AUTO) 1.3 % (0-2); HEMATOCRIT 33.7 % (36.0-47.0); HEMOGLOBIN 10.6 g/dL (12.0-15.5); LYMPHOCYTES % (AUTO) 28.3 % (13-45); MEAN CORPUSCULAR HEMOGLOBIN 23.4 pg (27.0-33.4); MEAN CORPUSCULAR HGB CONC 31.3 g/dL (32.0-36.0); MEAN CORPUSCULAR VOLUME 75 fl (80-97); MONOCYTES % (AUTO) 6.8 % (3-13); PLATELET COUNT 166 10^3/uL (150-450); RED BLOOD COUNT 4.51 10^6/uL (3.72-5.28); RED CELL DISTRIBUTION WIDTH 14.6 % (11.5-14.0); SEGMENTED NEUTROPHILS % (AUTO) 62.6 % (42-78); TOTAL CELLS COUNTED % (AUTO) 100 %; WHITE BLOOD COUNT 4.5 10^3/uL (4.0-10.5)
[2018-11-12 19:15] LABS: INTERNATIONAL RATION (INR) 3.14
[2018-11-12 19:16] LABS: PARTIAL THROMBOPLASTIN TIME 46.5 SEC (23.5-35.8)
[2018-11-12 19:25] LABS: ALANINE AMINOTRANSFERASE 9 U/L (9-52); ALBUMIN 4.2 g/dL (3.5-5.0); ALKALINE PHOSPHATASE 72 U/L (38-126); ANION GAP 9 (5-19); ASPARTATE AMINO TRANSFERASE 25 U/L (14-36); BILIRUBIN,DIRECT 0.3 mg/dL (0.0-0.4); BILIRUBIN,TOTAL 0.8 mg/dL (0.2-1.3); BLOOD UREA NITROGEN 15 mg/dL (7-20); CALCIUM 8.9 mg/dL (8.4-10.2); CARBON DIOXIDE 25 mmol/L (22-30); CHLORIDE 107 mmol/L (98-107); GLUCOSE 124 mg/dL (75-110); POTASSIUM 4.2 mmol/L (3.6-5.0); SODIUM 141.3 mmol/L (137-145); TOTAL PROTEIN 8.8 g/dL (6.3-8.2)
[2018-11-12] MEDS ORDERED: CEPHALEXIN 500 MG CAPSULE PO ONE (19:37)
[2018-11-12 20:07] VITALS: BP 146/74
--- NOTE | 2018-11-12 22:55 | RADIOLOGY REPORT (SQ) ---
EXAM DESCRIPTION: US EXTREMITY VEINS UNILATERAL COMPLETED DATE/TME: 11/12/2018 18:35 CLINICAL HISTORY: 73 years, Female, RLE swelling, hx of clots COMPARISON: None. TECHNIQUE: Transverse longitudinal sonographic images of the right lower extremity deep venous system LIMITATIONS: None. FINDINGS: No visible areas of thrombus. Normal compression and augmentation throughout. Doppler images are unremarkable IMPRESSION: Negative exam copyright 2010 [employer]- All Rights Reserved
--- NOTE | 2018-11-13 02:12 | ER Document Report ---
Entered by NELSON CABRERA SCRIBE 11/12/18 193 Acting as scribe for:BERTHA FERNANDEZ MD ED Extremity Problem, Lower - General Chief Complaint: Swelling of Lower Extremity Stated Complaint: RIGHT ANKLE SWELLING Time Seen by Provider: 11/12/18 18:33 Primary Care Provider: NELSON KATE MD [Primary Care Provider] - 11/17/18 Mode of Arrival: Ambulatory Notes: Patient is a 73-year-old female presenting to the emergency department complaining of right leg swelling. Patient's legs are swollen bilaterally, patient states that that is not abnormal, patient states that the right leg has been giving her extreme pain. Patient states that it has gotten swollen for a few months now intermittently, but it has stayed swollen for a week now. Patient states that last night she could not sleep because of the pain it was giving her. Patient states when she wakes up she can walk for an hour or 2, then it began swelling again. TRAVEL OUTSIDE OF THE [place] IN LAST 30 DAYS: No - Related Data Allergies/Adverse Reactions: Shellfish * [Shellfish] Allergy (Verified 11/12/18 18:23) shrimp Allergy (Uncoded 11/12/18 18:23) Past Medical History - General Information source: Patient - Social History Smoking Status: Never Smoker Chew tobacco use (# tins/day): No Frequency of alcohol use: None Drug Abuse: None Family History: Reviewed & Not Pertinent Patient has suicidal ideation: No Patient has homicidal ideation: No - Past Medical History Cardiac Medical History: Reports: Hx Atrial Fibrillation, Hx DVT - Right leg DVT, Hx Hypercholesterolemia, Hx Hypertension Endocrine Medical History: Reports: Hx Diabetes Mellitus Type 2 Musculoskeletal Medical History: Reports Hx Arthritis Past Surgical History: Reports: Hx Cardiac Catheterization - No coronary artery disease by history, Hx Cardiac Surgery - SHUNT, Hx Cholecystectomy, Hx Hysterectomy, Hx Vascular Surgery - IVC Filter - Immunizations Hx Diphtheria, Pertussis, Tetanus Vaccination: Yes Hx Pneumococcal Vaccination: 03/06/13 Review of Systems - Review of Systems Constitutional: No symptoms reported EENT: No symptoms reported Cardiovascular: No symptoms reported Respiratory: No symptoms reported Gastrointestinal: No symptoms reported Genitourinary: No symptoms reported Female Genitourinary: No symptoms reported Musculoskeletal: See HPI, Leg swelling Skin: No symptoms reported Hematologic/Lymphatic: No symptoms reported Neurological/Psychological: No symptoms reported Physical Exam - Vital signs Vitals: Temp Pulse Resp BP Pulse Ox 99.3 F 73 18 150/67 H 98 11/12/18 18:25 11/12/18 18:25 11/12/18 18:25 11/12/18 18:25 11/12/18 18:25 - Notes Notes: Physical Exam: General: Alert, appears well. HEENT: Normocephalic. Atraumatic. PERRL. Extraocular movements intact. Oropharynx clear. Neck: Supple. Non-tender. Respiratory: No respiratory distress. Clear and equal breath sounds bilaterally. Cardiovascular: Regular rate and rhythm. Abdominal: Normal Inspection. Non-tender. No distension. Normal Bowel Sounds. Back: Non-tender. No deformity or step off. Extremities: Moves all four extremities. Upper extremities: Normal inspection. Normal ROM. Lower extremities: Swollen bilaterally. Lymphedema. Right leg below the knee is extremely swollen. Areas from the right ankle up to the top of the right calf are very tender to palpation. Normal ROM. Neurological: Normal cognition. AAOx4. Normal speech. Psychological: Normal affect. Normal Mood. Skin: Warm. Dry. Normal color. Course - Re-evaluation Re-evalutation: 11/12/18 19:44 The patient reports that she has an appointment with Dr. Jules Robins next Saturday to be seen for this swelling problem that has been going on for such a long time, which has become acutely worse in the last several days. - Vital Signs Vital signs: Temp Pulse Resp BP Pulse Ox 99.3 F 73 18 150/67 H 98 11/12/18 18:25 11/12/18 18:25 11/12/18 18:25 11/12/18 18:25 11/12/18 18:25 - Laboratory Result Diagrams: 11/12/18 18:50 11/12/18 18:50 Laboratory results interpreted by me: 11/12/18 11/12/18 11/12/18 18:50 18:50 18:50 Hgb 10.6 L Hct 33.7 L MCV 75 L MCH 23.4 L MCHC 31.3 L RDW 14.6 H PT 33.0 H APTT 46.5 H Est GFR ( Amer) 51 L Est GFR (Non-Af Amer) 43 L Glucose 124 H Total Protein 8.8 H Discharge - Discharge Clinical Impression: Cellulitis Qualifiers: Site of cellulitis: extremity Site of cellulitis of extremity: lower extremity Laterality: right Qualified Code(s): L03.115 - Cellulitis of right lower limb Condition: Stable Disposition: HOME, SELF-CARE Additional Instructions: Cellulitis You have an infection of your skin and underlying soft tissues called cellulitis. This is due to bacteria, which can enter through any break in the skin, or even through an irritated hair follicle. Untreated, cellulitis will usually worsen. Antibiotics are required. Usually, warm packs or warm soaks, and elevation of the infected area are recommended. You should start getting better within 24 to 36 hours. Most infections respond quickly to the right medication. Follow-up care is important, however, to check for abscess (boil) formation, unsuspected foreign body, or resistant infection. If you develop fever, chills, or if the area of infection is becoming rapidly more swollen or painful, call the doctor at once. Add the antibiotics as prescribed to your regular medication regimen. Elevate your feet all the time. Limit walking to what is essential, such as going to the restroom. Try to avoid letting your legs hanging down, as this causes the swelling to return. Follow-up with your primary care provider as scheduled, sooner if not getting better. RETURN TO THE EMERGENCY ROOM IF ANY NEW OR WORSENING SYMPTOMS. Prescriptions: Cephalexin Monohydrate [Keflex 500 mg Capsule] 500 mg PO QID #28 capsule Referrals: NELSON KATE MD [Primary Care Provider] - 11/17/18 Scribe Attestation: 11/12/18 19:42 I personally performed the services described in the documentation, reviewed and edited the documentation which was dictated to the scribe in my presence, and it accurately records my words and actions. I personally performed the services described in the documentation, reviewed and edited the documentation which was dictated to the scribe in my presence, and it accurately records my words and actions.
== END 2018-11-12 20:07 | disposition home or self-care (01) ==
LOC: ER 18:09
DX: L03.115 Cellulitis of right lower limb (principal); M79.89 Other specified soft tissue disorders; I48.91 Unspecified atrial fibrillation; Z91.013 Allergy to seafood; Z86.718 Personal history of other venous thrombosis and embolism; Z90.49 Acquired absence of other specified parts of digestive tract; Z90.710 Acquired absence of both cervix and uterus
CPT/HCPCS: 99283; 36415; 85025; 85610; 85730; 80053; 93971; A9270 ×2; S0119

== ENCOUNTER 2019-03-13 08:42 | Emergency (ER) | payer MEDICARE, MEDICAID ==
[2019-03-13] MEDS ORDERED: CLINDAMYCIN 900 MG/D5W RTU 900 MG/50 ML RTUPB IV ONE (10:07)
[2019-03-13 12:06] LABS: ABSOLUTE LYMPHOCYTES (AUTO) 1.1 10^3/uL (0.5-4.7); ABSOLUTE MONOCYTES (AUTO) 0.2 10^3/uL (0.1-1.4); ABSOLUTE NEUT (AUTO) 2.2 10^3/uL (1.7-8.2); BASOPHILS % (AUTO) 0.8 % (0-2); EOSINOPHILS % (AUTO) 0.8 % (0-6); HEMATOCRIT 33.1 % (36.0-47.0); HEMOGLOBIN 10.6 g/dL (12.0-15.5); LYMPHOCYTES % (AUTO) 29.8 % (13-45); MEAN CORPUSCULAR HEMOGLOBIN 23.9 pg (27.0-33.4); MEAN CORPUSCULAR HGB CONC 31.9 g/dL (32.0-36.0); MEAN CORPUSCULAR VOLUME 75 fl (80-97); MONOCYTES % (AUTO) 6.2 % (3-13); PLATELET COUNT 168 10^3/uL (150-450); RED BLOOD COUNT 4.43 10^6/uL (3.72-5.28); RED CELL DISTRIBUTION WIDTH 15.9 % (11.5-14.0); SEGMENTED NEUTROPHILS % (AUTO) 62.4 % (42-78); TOTAL CELLS COUNTED % (AUTO) 100 %; WHITE BLOOD COUNT 3.6 10^3/uL (4.0-10.5)
[2019-03-13 12:16] LABS: INTERNATIONAL RATION (INR) 3.67; PARTIAL THROMBOPLASTIN TIME 41.3 SEC (23.5-35.8); PROTHROMBIN TIME 37.3 SEC (11.4-15.4)
[2019-03-13 12:34] LABS: ANION GAP 5 (5-19); BLOOD UREA NITROGEN 13 mg/dL (7-20); CALCIUM 8.8 mg/dL (8.4-10.2); CARBON DIOXIDE 27 mmol/L (22-30); CHLORIDE 105 mmol/L (98-107); GLUCOSE 95 mg/dL (75-110); POTASSIUM 4.8 mmol/L (3.6-5.0)
--- NOTE | 2019-03-13 13:02 | XCELERA REPORT ---
[address] [place] [facility] [address] Lower Extremity Venous Evaluation Procedure: Color flow and duplex imaging of the veins of the right lower extremity as well as the left Common Femoral vein. Right Sided Venous Evaluation Normal vessel filling wall to wall, compression and augmentation as well as Colour flow down to the infrageniculate veins. Left Sided Venous Evaluation The left common femoral vein is fully compressible. Spontaneous and phasic flow is present in the left common femoral vein. Interpretation Summary No duplex evidence of DVT or obstruction in the right lower extremity nor in the left Common Femoral vein. Name: SAE BOONE Annie Age: 73 yrs Gender: Female : 1945 Patient Status: Emergency Patient Location: ER Study Date: 03/13/2019 10:54 AM Reason For Study: right leg swelling Ordering Physician: ABEL POP Performed By: Alan Martinez : ABEL POP > Erlin Elaine
[2019-03-13 14:07] VITALS: BP 132/79
--- NOTE | 2019-03-13 14:33 | ER Document Report ---
ED Extremity Problem, Lower - General Chief Complaint: right leg pain Stated Complaint: LEG PAIN Time Seen by Provider: 03/13/19 09:49 Primary Care Provider: NELSON KATE MD [Primary Care Provider] - Follow up as needed TRAVEL OUTSIDE OF THE [place] IN LAST 30 DAYS: No - HPI Notes: This is a 73-year-old female who presents today with a complaint of redness and right lower leg. Patient states that she thinks she had an insect bite. It feels hot, itchy and red. She is concerned that she might also have a blood clot there. She takes Xarelto for blood clots. She denies any cardiopulmonary symptoms. She denies any chest pain or dyspnea. Describes her symptoms as mild. There are no obvious aggravating or relieving factors. - Related Data Allergies/Adverse Reactions: Shellfish * [Shellfish] Allergy (Verified 11/12/18 18:23) shrimp Allergy (Uncoded 11/12/18 18:23) Past Medical History - Social History Smoking Status: Never Smoker Chew tobacco use (# tins/day): No Frequency of alcohol use: None Drug Abuse: None Family History: Reviewed & Not Pertinent Patient has suicidal ideation: No Patient has homicidal ideation: No - Past Medical History Cardiac Medical History: Reports: Hx Atrial Fibrillation, Hx DVT - Right leg DVT, Hx Hypercholesterolemia, Hx Hypertension Pulmonary Medical History: Denies: Hx Tuberculosis Endocrine Medical History: Reports: Hx Diabetes Mellitus Type 2 Renal/ Medical History: Denies: Hx Peritoneal Dialysis Musculoskeletal Medical History: Reports Hx Arthritis Psychiatric Medical History: Denies: Hx Depression Past Surgical History: Reports: Hx Cardiac Catheterization - No coronary artery disease by history, Hx Cardiac Surgery - SHUNT, Hx Cholecystectomy, Hx Hyste rectomy, Hx Vascular Surgery - IVC Filter - Immunizations Hx Diphtheria, Pertussis, Tetanus Vaccination: Yes Hx Pneumococcal Vaccination: 03/06/13 Review of Systems - Review of Systems Constitutional: denies: Fever Respiratory: denies: Cough Gastrointestinal: denies: Abdominal pain Musculoskeletal: Other - Right leg erythema and pain. -: Yes All other systems reviewed and negative Physical Exam - Vital signs Vitals: Temp Pulse Resp BP Pulse Ox 98.5 F 59 L 24 H 153/80 H 99 03/13/19 08:49 03/13/19 08:49 03/13/19 08:49 03/13/19 08:49 03/13/19 08:49 - General General appearance: Appears well, Alert - Respiratory Respiratory status: No respiratory distress Chest status: Nontender Breath sounds: Normal Chest palpation: Normal - Cardiovascular Rhythm: Regular Heart sounds: Normal auscultation Murmur: No - Extremities Notes: There are 2 areas of erythema on the right lateral lower leg. They are warm and tender. No fluctuance to suggest abscess. No calf tenderness. Normal distal neurovascular exam of the right lower extremity. - Neurological Neuro grossly intact: Yes Cognition: Normal Orientation: AAOx4 [place] Coma Scale Eye Opening: Spontaneous [place] Coma Scale Verbal: Oriented [place] Coma Scale Motor: Obeys Commands [place] Coma Scale Total: 15 Speech: Normal Motor strength normal: LUE, RUE, LLE, RLE Sensory: Normal Course - Re-evaluation Re-evalutation: 03/13/19 12:31 Differential diagnosis includes infected insect bite/cellulitis versus DVT. 1405 Patient is doing well. Preliminary ultrasound report is negative for DVT. Will cover her with clindamycin for the cellulitis likely secondary to infected insect bite. She is stable for discharge. - Vital Signs Vital signs: Temp Pulse Resp BP Pulse Ox 97.3 F 59 L 20 132/79 H 100 03/13/19 13:01 03/13/19 08:49 03/13/19 13:01 03/13/19 13:01 03/13/19 13:01 - Laboratory Result Diagrams: 03/13/19 11:45 03/13/19 11:45 Laboratory results interpreted by me: 03/13/19 03/13/19 03/13/19 11:45 11:45 11:45 WBC 3.6 L Hgb 10.6 L Hct 33.1 L MCV 75 L MCH 23.9 L MCHC 31.9 L RDW 15.9 H PT 37.3 H APTT 41.3 H Est GFR (MDRD) Non-Af 49 L Discharge - Discharge Clinical Impression: Cellulitis Qualifiers: Site of cellulitis: extremity Site of cellulitis of extremity: lower extremity Laterality: right Qualified Code(s): L03.115 - Cellulitis of right lower limb Infected insect bite Qualifiers: Encounter type: initial encounter Qualified Code(s): W57.XXXA - Bitten or stung by nonvenomous insect and other nonvenomous arthropods, initial encounter Condition: Good Disposition: HOME, SELF-CARE Instructions: Cellulitis ([facility]), Swollen Insect Bite or Sting ([facility]) Prescriptions: Clindamycin HCl 300 mg PO TID #30 capsule Referrals: NELSON KATE MD [Primary Care Provider] - Follow up as needed
== END 2019-03-13 14:44 | disposition home or self-care (01) ==
LOC: ER 08:42
DX: S80.861A Insect bite (nonvenomous), right lower leg, initial encounter (principal); L03.115 Cellulitis of right lower limb; M79.604 Pain in right leg; W57.XXXA Bitten or stung by nonvenomous insect and other nonvenomous arthropods, initial encounter; Z79.01 Long term (current) use of anticoagulants; I10 Essential (primary) hypertension; E11.9 Type 2 diabetes mellitus without complications
CPT/HCPCS: 99284; 96374; 36415; 85025; 85610; 85730; 80048; 93971 ×2; J3490

== ENCOUNTER 2020-01-11 11:06 | Emergency (ER) | payer MEDICARE, MEDICAID ==
--- NOTE | 2020-01-11 11:26 | ER Document Report ---
ED Medical Screen (RME) - General Chief Complaint: Fall Injury Stated Complaint: FALL/HEAD INJURY Time Seen by Provider: 01/11/20 11:18 Primary Care Provider: NELSON KATE MD [Primary Care Provider] - Follow up as needed Mode of Arrival: Wheelchair Information source: Patient Notes: 74-year-old female presents to ED after she slipped and fell while trying to get out of the bathtub about an hour ago. She states she is not sure what she had in the bathtub room but she did hit her head. She is on Xarelto. She definitely needs a head and neck CT. She also has pain to her left and right shoulder and knee. She also has back to her low back. We will get x-rays and she will be seen by another provider. Does have a history of high blood pressure and DVTs. Is alert oriented respirations regular nonlabored at this time. I have greeted and performed a rapid initial assessment of this patient. A comprehensive ED assessment and evaluation of the patient, analysis of test results and completion of medical decision making process will be conducted by an additional ED providers. TRAVEL OUTSIDE OF THE [place] IN LAST 30 DAYS: No - Related Data Allergies/Adverse Reactions: Shellfish * [Shellfish] Allergy (Verified 11/12/18 18:23) shrimp Allergy (Uncoded 11/12/18 18:23) Home Medications: metoprolol, xarelto, potassium cl, triamterene hcz, diltiazam, linzess Past Medical History - Social History Frequency of alcohol use: None Drug Abuse: None - Past Medical History Cardiac Medical History: Reports: Hx Atrial Fibrillation, Hx DVT - Right leg DVT, Hx Hypercholesterolemia, Hx Hypertension Pulmonary Medical History: Denies: Hx Tuberculosis Endocrine Medical History: Reports: Hx Diabetes Mellitus Type 2 Renal/ Medical History: Denies: Hx Peritoneal Dialysis Musculoskeltal Medical History: Reports Hx Arthritis Psychiatric Medical History: Denies: Hx Depression Past Surgical History: Reports: Hx Cardiac Catheterization - No coronary artery disease by history, Hx Cardiac Surgery - SHUNT, Hx Cholecystectomy, Hx Hysterectomy, Hx Vascular Surgery - IVC Filter - Immunizations Hx Diphtheria, Pertussis, Tetanus Vaccination: Yes Physical Exam - Vital signs Vitals: Temp Pulse Resp BP Pulse Ox 98.1 F 81 20 146/77 H 100 01/11/20 11:14 01/11/20 11:14 01/11/20 11:14 01/11/20 11:14 01/11/20 11:14 Course - Vital Signs Vital signs: Temp Pulse Resp BP Pulse Ox 98.1 F 81 20 146/77 H 100 01/11/20 11:14 01/11/20 11:14 01/11/20 11:14 01/11/20 11:14 01/11/20 11:14 Doctor's Discharge - Discharge Referrals: NELSON KATE MD [Primary Care Provider] - Follow up as needed
--- NOTE | 2020-01-11 11:58 | RADIOLOGY REPORT (SQ) ---
EXAM DESCRIPTION: CT HEAD WITHOUT IMAGES COMPLETED DATE/TIME: 01/11/2020 11:43 am REASON FOR STUDY: Head injury when she fell COMPARISON: 01/31/2017 and 06/30/2010 TECHNIQUE: Axial images acquired through the brain without intravenous contrast. Images reviewed wi th bone, brain and subdural windows. Additional sagittal and coronal reconstructions were generated. Images stored on PACS. All CT scanners at this facility use dose modulation, iterative reconstruction, and/or weight based d osing when appropriate to reduce radiation dose to as low as reasonably achievable (ALARA). [facility]: Dose Right [facility]: CareDose [facility]: Dose Right [facility]: Teradose 4D [facility]: Smart [employer] RADIATION DOSE: CT Rad equipment meets quality standard of care and radiation dose reduction techniq ues were employed. CTDIvol: 53.2 mGy. DLP: 1044 mGy-cm. mGy. LIMITATIONS: None. FINDINGS: VENTRICLES: Normal size and contour. CEREBRUM: No masses. No hemorrhage. No midline shift. No evidence for acute infarction. Normal gra y/white matter differentiation. No areas of low density in the white matter. CEREBELLUM: No masses. No hemorrhage. No alteration of density. No evidence for acute infarction. EXTRAAXIAL SPACES: No fluid collections. No masses. ORBITS AND GLOBE: No intra- or extraconal masses. Normal contour of globe without masses. CALVARIUM: No fracture. PARANASAL SINUSES: No fluid or mucosal thickening. SOFT TISSUES: No mass or hematoma. OTHER: No other significant finding. IMPRESSION: No evidence of calvarial injury or intracranial hemorrhage. Trace microvascular ischemi c changes demonstrated on comparison MR imaging are not demonstrated by a noncontrast CT. EVIDENCE OF ACUTE STROKE: NO. COMMENT: Quality ID # [id number]: Final reports with documentation of one or more dose reduction techniques (e.g., Automated exposure control, adjustment of the mA and/or kV according to patient size, use of iterative reconstruction technique) TECHNICAL DOCUMENTATION: JOB ID: [id number] 2010 [employer]- All Rights Reserved Reading location - IP/workstation name: [email or web address]
--- NOTE | 2020-01-11 12:01 | RADIOLOGY REPORT (SQ) ---
EXAM DESCRIPTION: CT CERVICAL SPINE WITHOUT IMAGES COMPLETED DATE/TIME: 01/11/2020 11:43 am REASON FOR STUDY: Fell getting out of the bathtub pain injury COMPARISON: None. TECHNIQUE: Axial images acquired through the cervical spine without intravenous contrast. Images re viewed with lung, soft tissue and bone windows. Reconstructed coronal and sagittal MPR images review ed. Images stored on PACS. All CT scanners at this facility use dose modulation, iterative reconstruction, and/or weight based d osing when appropriate to reduce radiation dose to as low as reasonably achievable (ALARA). [facility]: Dose Right [facility]: CareDose [facility]: Dose Right [facility]: Teradose 4D [facility]: Smart [employer] RADIATION DOSE: CT Rad equipment meets quality standard of care and radiation dose reduction techniq ues were employed. CTDIvol: 24.2 mGy. DLP: 556 mGy-cm. mGy. LIMITATIONS: None. FINDINGS: ALIGNMENT: Mild reversal of the normal lordotic curvature centered at the C4 level. MINERALIZATION: Osteopenia. VERTEBRAL BODIES: No fractures or dislocation. DISCS: Multilevel disc space narrowing with osteophytes. FACETS, LATERAL MASSES, POSTERIOR ELEMENTS: Facet arthropathy. No fractures. No dislocation. No ac [place] findings. HARDWARE: None in the spine. VISUALIZED RIBS: No fractures. LUNG APICES AND SOFT TISSUES: No significant or acute findings. OTHER: Any hypoattenuating focus seen within the right thyroid lobe likely represents a tiny colloid cyst. IMPRESSION: No evidence of acute osseous injury. Background of multi-level spondylotic changes. TECHNICAL DOCUMENTATION: JOB ID: [id number] Quality ID # [id number]: Final reports with documentation of one or more dose reduction techniques (e.g., Au tomated exposure control, adjustment of the mA and/or kV according to patient size, use of iterative reconstruction technique) 2010 [employer]- All Rights Reserved Reading location - IP/workstation name: [email or web address]
--- NOTE | 2020-01-11 12:20 | RADIOLOGY REPORT (SQ) ---
EXAM DESCRIPTION: ANKLE RIGHT COMPLETE IMAGES COMPLETED DATE/TIME: 01/11/2020 12:08 pm REASON FOR STUDY: FALL COMPARISON: None. NUMBER OF VIEWS: Three views. TECHNIQUE: AP, lateral, and oblique radiographic images acquired of the right ankle. LIMITATIONS: None. FINDINGS: MINERALIZATION: Normal. BONES: Periosteal irregularity involving the distal fibular metadiaphysis without discrete cortical d isruption. JOINTS: No effusions. SOFT TISSUES: Circumferential soft tissue edema. OTHER: Calcaneal enthesopathy. IMPRESSION: Periosteal irregularity involving the distal fibula without cortical disruption may repr esent sequela of remote trauma, venous stasis, or subacute injury. Recommend correlation for mechani sm of injury and point tenderness. TECHNICAL DOCUMENTATION: JOB ID: [id number] 2010 [employer]- All Rights Reserved Reading location - IP/workstation name: [email or web address]
--- NOTE | 2020-01-11 12:21 | RADIOLOGY REPORT (SQ) ---
EXAM DESCRIPTION: SHOULDER BILAT 2 OR MORE VIEWS IMAGES COMPLETED DATE/TIME: 01/11/2020 12:08 pm REASON FOR STUDY: Fell getting out of the bathtub pain injury COMPARISON: None. NUMBER OF VIEWS: Six views. TECHNIQUE: Internal rotation, external rotation, and Y view images acquired of the right and left sh oulder. LIMITATIONS: None. FINDINGS: MINERALIZATION: Normal. BONES: No acute fracture. No worrisome bone lesions. JOINTS: Marked degenerative changes are seen of the bilateral glenohumeral and acromioclavicular join ts. Calcified intraarticular bodies are likewise seen bilaterally. VISUALIZED LUNGS AND RIBS: No pneumothorax. No rib fracture. SOFT TISSUES: No radiopaque foreign body. OTHER: No other significant finding. IMPRESSION: No evidence of acute osseous injury. Background of marked glenohumeral and acromioclavi cular arthropathy bilaterally. TECHNICAL DOCUMENTATION: JOB ID: [id number] 2010 [employer]- All Rights Reserved Reading location - IP/workstation name: [email or web address]
--- NOTE | 2020-01-11 12:23 | RADIOLOGY REPORT (SQ) ---
EXAM DESCRIPTION: KNEE RIGHT 4 VIEWS IMAGES COMPLETED DATE/TIME: 01/11/2020 12:08 pm REASON FOR STUDY: Fell getting out of the bathtub pain injury COMPARISON: None. NUMBER OF VIEWS: Four views. TECHNIQUE: AP, lateral, and both oblique radiographic images acquired of the right knee. LIMITATIONS: None. FINDINGS: MINERALIZATION: Normal. BONES: No acute fracture or dislocation. No worrisome bone lesions. JOINT: No effusion. Tricompartmental degenerative changes are present with prominent marginal osteop hytes and calcified intraarticular bodies. SOFT TISSUES: No soft tissue swelling. No radio-opaque foreign body. OTHER: No other significant finding. IMPRESSION: No evidence of acute osseous injury. Background of tricompartmental degenerative change s. TECHNICAL DOCUMENTATION: JOB ID: [id number] 2010 [employer]- All Rights Reserved Reading location - IP/workstation name: [email or web address]
--- NOTE | 2020-01-11 12:24 | RADIOLOGY REPORT (SQ) ---
EXAM DESCRIPTION: KNEE LEFT 4 VIEW IMAGES COMPLETED DATE/TIME: 01/11/2020 12:08 pm REASON FOR STUDY: Fell getting out of the bathtub pain injury COMPARISON: None. NUMBER OF VIEWS: Four views. TECHNIQUE: AP, lateral, and both oblique radiographic images acquired of the left knee. LIMITATIONS: None. FINDINGS: MINERALIZATION: Normal. BONES: No acute fracture or dislocation. No worrisome bone lesions. JOINT: No joint effusion. Tricompartmental degenerative changes are present with prominent marginal osteophytes and calcified intraarticular bodies. SOFT TISSUES: No soft tissue swelling. No radio-opaque foreign body. OTHER: No other significant finding. IMPRESSION: No evidence of acute osseous injury. Background of tricompartmental degenerative change s. TECHNICAL DOCUMENTATION: JOB ID: [id number] 2010 [employer]- All Rights Reserved Reading location - IP/workstation name: [email or web address]
--- NOTE | 2020-01-11 12:25 | RADIOLOGY REPORT (SQ) ---
EXAM DESCRIPTION: L SPINE WHOLE IMAGES COMPLETED DATE/TIME: 01/11/2020 12:08 pm REASON FOR STUDY: Fell getting out of the bathtub pain injury COMPARISON: None. NUMBER OF VIEWS: Five views including obliques. TECHNIQUE: AP, lateral, oblique, and sacral radiographic images acquired of the lumbar spine. LIMITATIONS: None. FINDINGS: MINERALIZATION: Normal. SEGMENTATION: Normal. No transitional anatomy. ALIGNMENT: Normal. VERTEBRAE: Maintained height. No fracture or worrisome bone lesion. DISCS: Multilevel disc space narrowing with osteophytes. POSTERIOR ELEMENTS: Pedicles and facets are intact. No pars defect or posterior arch defects. Facet arthropathy is present. HARDWARE: None in the spine. PARASPINAL SOFT TISSUES: Inferior vena cava filter. PELVIS: Intact as visualized. No fractures or worrisome bone lesions. SI joints intact. OTHER: No other significant finding. IMPRESSION: No evidence of acute osseous injury. Multilevel spondylotic changes are present. TECHNICAL DOCUMENTATION: JOB ID: [id number] 2010 [employer]- All Rights Reserved Reading location - IP/workstation name: [email or web address]
--- NOTE | 2020-01-11 13:14 | ER Document Report ---
ED General - General Chief Complaint: Fall Injury Stated Complaint: FALL/HEAD INJURY Time Seen by Provider: 01/11/20 11:18 Primary Care Provider: NELSON KATE MD [Primary Care Provider] - Follow up as needed Mode of Arrival: Wheelchair Information source: Patient Notes: 01/11/20 11:18 - ED [facility] [id number] : 1945 Patient Age: 74 Pt presents to the ED for c/o fall injury. Pt reports she slipped and fell out of the tub this morning 1hr ago. Reports landing on her L side injuring her L knee and shoulder as well as hitting her head. Pt takes Xarelto. Pt also notes her R knee and R shoulder are sore as well. Pt states fall happened so fast she cannot remember much. Pt is A&Ox4, breaths e/u, NAD, appears uncomfortable. ED Medical Screen ([facility] notes) - General Chief Complaint: Fall Injury Stated Complaint: FALL/HEAD INJURY Time Seen by Provider: 01/11/20 11:18 Primary Care Provider: NELSON KATE MD [Primary Care Provider] - Follow up as needed Mode of Arrival: Wheelchair Information source: Patient Notes: 74-year-old female presents to ED after she slipped and fell while trying to get out of the bathtub about an hour ago. She states she is not sure what she had in the bathtub room but she did hit her head. She is on Xarelto. She de finitely needs a head and neck CT. She also has pain to her left and right shoulder and knee. She also has back to her low back. We will get x-rays and she will be seen by another provider. Does have a history of high blood pressure and DVTs. Is alert oriented respirations regular nonlabored at this time. MY NOTES 74-year-old black female arrives with her granddaughter with chief complaint of right shoulder right knee head and right medial ankle pain after she slipped and fell in her bathroom as she was lifting her right foot up in order to wash it in the bathtub. She has a house that was built in and did not have a walking shower but rather a tub. She usually ambulates in her house without difficulty but has a history of fracturing her right ankle when she was in her 20s. She usually has blood clots in her right leg and has continual swelling but now has tenderness along the right medial malleolus pointing to this area. X-rays reveal a subtle fracture /irregularity TRAVEL OUTSIDE OF THE [place] IN LAST 30 DAYS: No - HPI Onset: This morning Onset/Duration: Sudden, Persistent Quality of pain: Achy Severity: Mild Pain Level: 2 - Related Data Allergies/Adverse Reactions: Shellfish * [Shellfish] Allergy (Verified 11/12/18 18:23) shrimp Allergy (Uncoded 11/12/18 18:23) Home Medications: metoprolol, xarelto, potassium cl, triamterene hcz, diltiazam, linzess Past Medical History - General Information source: Patient - Social History Smoking Status: Never Smoker Cigarette use (# per day): No Chew tobacco use (# tins/day): No Smoking Education Provided: No Frequency of alcohol use: None Drug Abuse: None Lives with: Family Family History: Reviewed & Not Pertinent - Past Medical History Cardiac Medical History: Reports: Hx Atrial Fibrillation, Hx DVT - Right leg DVT, Hx Hypercholesterolemia, Hx Hypertension Pulmonary Medical History: Denies: Hx Tuberculosis Endocrine Medical History: Reports: Hx Diabetes Mellitus Type 2 Renal/ Medical History: Denies: Hx Peritoneal Dialysis Musculoskeletal Medical History: Reports Hx Arthritis Psychiatric Medical History: Denies: Hx Depression Past Surgical History: Reports: Hx Cardiac Catheterization - No coronary artery disease by history, Hx Cardiac Surgery - SHUNT, Hx Cholecystectomy, Hx Hysterectomy, Hx Vascular Surgery - IVC Filter - Immunizations Hx Diphtheria, Pertussis, Tetanus Vaccination: Yes Hx Pneumococcal Vaccination: 03/06/13 Review of Systems - Review of Systems Constitutional: No symptoms reported EENT: No symptoms reported Cardiovascular: No symptoms reported Respiratory: No symptoms reported Gastrointestinal: No symptoms reported Genitourinary: No symptoms reported Female Genitourinary: No symptoms reported Musculoskeletal: See HPI, Joint pain - right medial malleolus pain on rom, Joint swelling Skin: No symptoms reported Hematologic/Lymphatic: No symptoms reported Neurological/Psychological: No symptoms reported Physical Exam - Vital signs Vitals: Temp Pulse Resp BP Pulse Ox 98.1 F 81 20 146/77 H 100 01/11/20 11:14 01/11/20 11:14 01/11/20 11:14 01/11/20 11:14 01/11/20 11:14 Interpretation: Normal - HEENT Head: Normocephalic, Atraumatic Eyes: Normal Pupils: PERRL Pharynx: Normal Neck: Normal - Respiratory Respiratory status: No respiratory distress Chest status: Nontender Breath sounds: Normal - Cardiovascular Rhythm: Regular Heart sounds: Normal auscultation Murmur: No - Abdominal Inspection: Normal Bowel sounds: Normal - Rectal Hemorrhoids: Other - deferred - Genitourinary [place] exam: Other - deferred - Back Back: Normal - Extremities General upper extremity: Normal inspection General lower extremity: Tender, Edema - Neurological Neuro grossly intact: Yes Cognition: Normal Orientation: AAOx4 Carmen Coma Scale Eye Opening: Spontaneous [place] Coma Scale Verbal: Oriented Carmen Coma Scale Motor: Obeys Commands Carmen Coma Scale Total: 15 Speech: Normal Motor strength normal: LUE, RUE, LLE, RLE Sensory: Normal - Psychological Associated symptoms: Normal affect - Skin Skin Temperature: Warm Skin Moisture: Dry Course - Vital Signs Vital signs: Temp Pulse Resp BP Pulse Ox 98.1 F 81 20 146/77 H 100 01/11/20 11:14 01/11/20 11:14 01/11/20 11:14 01/11/20 11:14 01/11/20 11:14 - Diagnostic Test Radiology reviewed: Reports reviewed - neg ct and xrays except distal fib per radiology Discharge - Discharge Clinical Impression: Fall Qualifiers: Encounter type: initial encounter Qualified Code(s): W19.XXXA - Unspecified fall, initial encounter Ankle fracture Qualifiers: Encounter type: initial encounter Fracture type: closed Laterality: right Qualified Code(s): S82.891A - Other fracture of right lower leg, initial encounter for closed fracture Condition: Good Disposition: HOME, SELF-CARE Additional Instructions: Follow-up with Dr. Tomas Barrera orthopedics this week take medicines as directed. Apply Voltaren gel to affected painful ankle as needed. Since you are on blood thinners try to avoid oral nonsteroidals or aspirin. Prescriptions: Diclofenac Sodium 100 gm TP BID PRN #100 gel..gram. PRN Reason: Referrals: NELSON KATE MD [Primary Care Provider] - Follow up as needed
[2020-01-11 14:26] VITALS: BP 150/87
== END 2020-01-11 14:27 | disposition home or self-care (01) ==
LOC: ER 11:06
DX: S82.891A Other fracture of right lower leg, initial encounter for closed fracture (principal); S09.90XA Unspecified injury of head, initial encounter; M25.511 Pain in right shoulder; M25.561 Pain in right knee; M25.571 Pain in right ankle and joints of right foot; W18.2XXA Fall in (into) shower or empty bathtub, initial encounter; Z86.718 Personal history of other venous thrombosis and embolism; Z79.899 Other long term (current) drug therapy; Z79.01 Long term (current) use of anticoagulants
CPT/HCPCS: 70450; 72110; 72125; 99285